=== PATIENT | female | born 1945 | race Hispanic/Latino ===

== ENCOUNTER 2021-04-03 21:31 | Emergency (ER) | payer MEDICARE, MEDICAID ==
[2021-04-03] MEDS ORDERED: Sulfameth/Trimethoprim DS 800-160mg TAB ONE (22:15)
== END 2021-04-03 22:33 | disposition home or self-care (01) ==
LOC: NAV ERS 21:31
DX: L60.0 Ingrowing nail (principal); L03.90 Cellulitis, unspecified; I10 Essential (primary) hypertension; E11.9 Type 2 diabetes mellitus without complications; I25.10 Atherosclerotic heart disease of native coronary artery without angina pectoris; E78.5 Hyperlipidemia, unspecified; Z79.84 Long term (current) use of oral hypoglycemic drugs; Z79.899 Other long term (current) drug therapy
CPT/HCPCS: 99283